=== PATIENT | male | born 1995 | race African-American/Black ===

== ENCOUNTER 2016-02-16 21:48 | Emergency (ER) | payer MEDICAID, OTHER ==
[~2016-02-16] VITALS: Ht 175.3 cm; Wt 72.7 kg
[~2016-02-16 21:48] MED LIST: ERYT1O RIGHT EYE; NITR-29 PO; POLY10O EACH EYE
[2016-02-16 21:50] VITALS: BP 134/78; PULSE 84; RESP 14; TEMP 98.2; O2SAT 98
[2016-02-17 02:33] LABS: BACTERIA, URINE RARE /hpf; BLOOD, URINE LARGE (NEG); GLUCOSE,URINE NEG (NEG); KETONE, URINE 40 mg/dL (NEG); MUCUS URINE FEW /lpf (OCC); NITRITE,URINE NEG (NEG)
[2016-02-17 02:34] LABS: COMMENT (UR) CULT NOT INDICATED; CULTURE IF INDICATED CULT NOT INDICATED; URINE COLOR RED (YELLW/STRAW)
[2016-02-17] MEDS ORDERED: SODIUM CHLORIDE 0.9% FLUSH 5 ML FLUSH IVF PRN (03:00)
[2016-02-17 03:06] VITALS: O2SAT 100
[2016-02-17 03:44] LABS: AUTOMATED NEUTROPHIL # 5.5 TH/MM3 (1.8-7.7); BASOPHIL # 0.1 TH/MM3 (0-0.2); BASOPHIL % 0.6 % (0.0-2.0); EOSINOPHIL # 0.1 TH/MM3 (0-0.4); HEMATOCRIT 44.7 % (39.0-51.0); HEMO FLAGS DIFF FINAL; LYMPH % 29.2 % (9.0-44.0); LYMPHOCYTE # 2.8 TH/MM3 (1.0-4.8); MEAN CORPUSCULAR HEMOGLOBIN 28.5 PG (27.0-34.0); MEAN CORPUSCULAR HGB CONC 35.6 % (32.0-36.0); MONO % 12.2 % (0.0-8.0); PLATELET COUNT 194 TH/MM3 (150-450); RED BLOOD COUNT 5.59 MIL/MM3 (4.50-5.90); RED CELL DISTRIBUTION WIDTH 13.6 % (11.6-17.2); WHITE BLOOD COUNT 9.6 TH/MM3 (4.0-11.0)
[2016-02-17 04:01] LABS: BICARBONATE 28.6 MEQ/L (21.0-32.0); POTASSIUM 3.4 MEQ/L (3.5-5.1)
[2016-02-17] MEDS ORDERED: CIPR-9 PO (04:18)
--- NOTE | 2016-02-17 04:18 | PD ---
HPI Chief Complaint: Complaint Time Seen by Provider: 02:55 Travel History International Travel<30 days: No Contact w/Intl Traveler<30days: No Traveled to known affect area: No History of Present Illness HPI Patient is a 20-year-old male presents emergency department for painless hematuria. Patient states this never happened to him before. Denies history of burning on urination and flank pain. Patient states he has a father who is on dialysis and is concerned that his kidneys might be failing him. Patient denies any history of trauma. Presents with his 2 friends all of whom have skateboards today and I question him on trauma multiple times and he declines. Patient does state he has a history of midline low back pain but this is not new for him. Denies any fever or denies any swelling in his extremities. Denies any Shortness of breath. PFSH Social History Alcohol Use: No Tobacco Use: No Substance Use: No Allergies-Medications (Allergen,Severity, Reaction): Coded Allergies: No Known Allergies (Unverified , 02/17/16) Reported Meds & Prescriptions Reported Meds & Active Scripts Active Cipro (Ciprofloxacin HCl) 500 Mg Tab 500 Mg PO BID 7 Days Review of Systems Except as stated in HPI: all other systems reviewed are Neg Physical Exam Narrative GENERAL: [Well-developed well-nourished in no apparent distress. Appears quite comfortable sleeping on my initial evaluation. SKIN: Warm and dry. No bruising to posterior thorax or abdomen. HEAD: Atraumatic. Normocephalic. EYES: Pupils equal and round. No scleral icterus. No injection or drainage. ENT: No nasal bleeding or discharge. Mucous membranes pink and moist. NECK: Trachea midline. No JVD. CARDIOVASCULAR: Regular rate and rhythm. No murmur appreciated. RESPIRATORY: No accessory muscle use. Clear to auscultation. Breath sounds equal bilaterally. GASTROINTESTINAL: Abdomen soft, non-tender, nondistended. Hepatic and splenic margins not palpable. No CVA tenderness. GENITOURINARY: Normal circumcised male genitalia no blood at the urethral meatus , no trauma evident. MUSCULOSKELETAL: No obvious deformities. No clubbing. No cyanosis. No edema. No midline low back tenderness or step-off. NEUROLOGICAL: Awake and alert. No obvious cranial nerve deficits. Motor grossly within normal limits. Normal speech. PSYCHIATRIC: Appropriate mood and affect; insight and judgment normal. Data Data Last Documented VS Vital Signs Date Time Temp Pulse Resp B/P Pulse Ox O2 Delivery O2 Flow Rate FiO2 02/17/16 04:49 78 18 123/64 100 Room Air 02/16/16 21:50 98.2 Orders Urinalysis - C+S If Indicated (02/17/16 01:58) Basic Metabolic Panel (Bmp) (02/17/16 02:55) Complete Blood Count With Diff (02/17/16 02:55) Iv Access Insert/Monitor (02/17/16 02:55) Ecg Monitoring (02/17/16 02:55) Oximetry (02/17/16 02:55) Sodium Chloride 0.9% Flush (Ns Flush) (02/17/16 03:00) Labs Laboratory Tests Test 02/17/16 02/17/16 02:21 03:29 Urine Color RED Urine Turbidity CLEAR Urine pH 6.0 Urine Specific [place] 1.023 Urine Protein 100 mg/dL Urine Glucose (UA) NEG mg/dL Urine Ketones 40 mg/dL Urine Occult Blood LARGE Urine Nitrite NEG Urine Bilirubin NEG Urine Urobilinogen LESS THAN 2.0 MG/DL Urine Leukocyte Esterase NEG Urine WBC 3 /hpf Urine Bacteria RARE /hpf Urine Mucus FEW /lpf Microscopic Urinalysis Comment CULT NOT INDICATED White Blood Count 9.6 TH/MM3 Red Blood Count 5.59 MIL/MM3 Hemoglobin 15.9 GM/DL Hematocrit 44.7 % Mean Corpuscular Volume 80.0 FL Mean Corpuscular Hemoglobin 28.5 PG Mean Corpuscular Hemoglobin 35.6 % Concent Red Cell Distribution Width 13.6 % Platelet Count 194 TH/MM3 Mean Platelet Volume 10.0 FL Neutrophils (%) (Auto) 57.0 % Lymphocytes (%) (Auto) 29.2 % Monocytes (%) (Auto) 12.2 % Eosinophils (%) (Auto) 1.0 % Basophils (%) (Auto) 0.6 % Neutrophils # (Auto) 5.5 TH/MM3 Lymphocytes # (Auto) 2.8 TH/MM3 Monocytes # (Auto) 1.2 TH/MM3 Eosinophils # (Auto) 0.1 TH/MM3 Basophils # (Auto) 0.1 TH/MM3 CBC Comment DIFF FINAL Differential Comment Sodium Level 138 MEQ/L Potassium Level 3.4 MEQ/L Chloride Level 103 MEQ/L Carbon Dioxide Level 28.6 MEQ/L Anion Gap 6 MEQ/L Blood Urea Nitrogen 14 MG/DL Creatinine 1.06 MG/DL Estimat Glomerular Filtration 109 ML/MIN Rate Random Glucose 138 MG/DL Calcium Level 8.6 MG/DL [facility] Medical Decision Making Medical Screen Exam Complete: Yes Emergency Medical Condition: Yes Differential Diagnosis Hematuria, UTI, acute kidney injury, kidney stone seems less likely. Narrative Course Patient is a 20-year-old male roomed in the emergency department for painless hematuria. UA does confirm hematuria though nitrite negative. Labs are obtained and creatinine is within normal limits. White blood cell count normal and differential normal. Considering his age she is a low risk for malignancy. I did discuss with him need for follow-up with the urologist. We'll place on them. Antibiotics at this time discussed need for follow-up with his primary care provider for interval repeat urine testing. Otherwise there is no medical emergency here and he is stable for discharge. Diagnosis Primary Impression: Hematuria Referrals: Karson Prater DO Additional Instructions: Call your primary care physician Med/Other Pt SpecificInfo: Prescription(s) given Scripts Ciprofloxacin (Cipro)500 Mg [id number] Mg PO BID 7 Days Ref 0 Prov:Afshin Frey MD 02/17/16 Disposition: 01 DISCHARGE HOME Condition: Stable Afsihn Frey MD Feb 17, 2016 04:18
[2016-02-17 04:49] VITALS: BP 123/64; PULSE 78; RESP 18; O2SAT 100
== END 2016-02-17 05:49 | disposition home or self-care (01) ==
LOC: NEPC 21:48
DX: R31.9 Hematuria, unspecified (principal); M54.5 Low back pain
CPT/HCPCS: 80048; 81001; 85025; 99284

== ENCOUNTER 2016-06-06 15:40 | Emergency (ER) | payer MEDICAID, OTHER ==
[~2016-06-06] VITALS: Ht 175.3 cm; Wt 72.5 kg
[~2016-06-06 15:40] MED LIST changes: +CIPR-9 PO; -ERYT1O RIGHT EYE; -NITR-29 PO; -POLY10O EACH EYE
[2016-06-06 15:42] VITALS: BP 130/65; PULSE 81; RESP 14; TEMP 98.4; O2SAT 99
--- NOTE | 2016-06-06 15:44 | PD ---
Physical Exam Time Seen by Provider: 15:42 Narrative 20 y/o male with cough and congestion for 2 days Vital signs reviewed. Seen at triage desk. awaiting bed placement. Data Data Last Documented VS Vital Signs Date Time Temp Pulse Resp B/P Pulse Ox O2 Delivery O2 Flow Rate FiO2 06/06/16 15:42 98.4 81 14 130/65 99 MDM Medical Record Reviewed: Yes Supervised Visit with MURALI: No Gurdeep Zazueta June 06, 2016 15:44
[2016-06-06] MEDS ORDERED: IBUP200T2 PO (15:55)
--- NOTE | 2016-06-06 16:22 | PD ---
HPI Chief Complaint: Cold / Flu Symptoms Time Seen by Provider: 16:19 Travel History International Travel<30 days: No Contact w/Intl Traveler<30days: No Traveled to known affect area: No History of Present Illness HPI 20-year-old male presents to the emergency Department with complaint of nasal congestion, cough, sore throat, body ache, headache 2 days. Reports subjective fever today. Did not take his temperature and cannot reported MAXIMUM TEMPERATURE. Denies ear pain, chest pain, chest tightness, shortness of breath. Reports wheezing. Says when he coughs it causes pain in his chest. Denies abdominal pain, nausea, vomiting. Has been using cough drops and taking ibuprofen. Says the ibuprofen has been helping with his symptoms. No known allergies. Denies significant past medical history. Has no other medical complaints. No one else is sick with similar symptoms that he knows of. No other modifying factors or associated signs and symptoms. PFSH Past Medical History Medical History: Denies Significant Hx Immunizations Current: Yes Tetanus Vaccination: < 5 Years Influenza Vaccination: No Past Surgical History Surgical History: No Previous Surgery Social History Alcohol Use: No Tobacco Use: No Substance Use: No Allergies-Medications (Allergen,Severity, Reaction): Coded Allergies: No Known Allergies (Unverified , 06/06/16) Reported Meds & Prescriptions Reported Meds & Active Scripts Active Nasonex Nasal [place] (Mometasone Furoate) 50 Mcg/Act Naspr 2 [place] EACH NARE DAILY PRN Ibuprofen 800 Mg Tab 800 Mg PO Q6HR PRN Tessalon Perles (Benzonatate) 100 Mg Cap 100 Mg PO TID PRN Deltasone (Prednisone) 20 Mg Tab 40 Mg PO DAILY 5 Days Proair Hfa 8.5 GM Inh (Albuterol Sulfate) 90 Mcg/Act Aer 2 Puff INH Q4-6H PRN 108 mcg/actuation Reported Ibuprofen 200 Mg Tab 400 Mg PO Q6H PRN Review of Systems Except as stated in HPI: all other systems reviewed are Neg Physical Exam Narrative GENERAL: Well-nourished, well-developed male patient, in no acute distress; afebrile, nontoxic-appearing SKIN: Warm and dry. No rash. HEAD: Atraumatic. Normocephalic. EYES: Pupils equal and round at 3 mm with brisk reaction. No scleral icterus. No injection or drainage. PERRLA. ENT: Mucosa pink and moist. No erythema or exudates. No uvular edema. No uvular , palatal, or tonsillar deviation. Airway patent. EARS: Bilateral pinnae and external canals appear within normal limits. Bilateral tympanic membranes without erythema, dullness or perforation. NECK: Trachea midline. No lymphadenopathy. CARDIOVASCULAR: Regular rate and rhythm. No murmur appreciated. RESPIRATORY: No accessory muscle use. Clear to auscultation and decreased in bilateral bases. Breath sounds equal bilaterally. Dry, barky cough during physical exam. GASTROINTESTINAL: Abdomen soft, non-tender, nondistended. Hepatic and splenic margins not palpable. Bowel sounds are active 4 quadrants. MUSCULOSKELETAL: No obvious deformities. No clubbing. No cyanosis. No edema. NEUROLOGICAL: Awake and alert. Oriented 3. No obvious cranial nerve deficits. Motor grossly within normal limits. Normal speech. Moves all extremities. 5/5 strength to all extremities. PSYCHIATRIC: Appropriate mood and affect; insight and judgment normal. Data Data Last Documented VS Vital Signs Date Time Temp Pulse Resp B/P Pulse Ox O2 Delivery O2 Flow Rate FiO2 06/06/16 15:42 98.4 81 14 130/65 99 Orders Group A Rapid Strep Screen (06/06/16 16:18) Influenzae A/B Antigen (06/06/16 16:18) Albuterol Neb (Albuterol Neb) (06/06/16 16:30) Chest, Pa & Lat (06/06/16 16:22) Strep Culture (Group A) (06/06/16 16:21) [facility] Medical Decision Making Medical Screen Exam Complete: Yes Emergency Medical Condition: Yes Medical Record Reviewed: Yes Differential Diagnosis Bronchitis, influenza, upper respiratory infection, pneumonia Narrative Course 20-year-old male with cold/flu symptoms 2 days. Patient is afebrile and nontoxic appearing. He reports subjective fever at home. Patient is in no acute distress and oxygen saturation is 98% on room air. His lungs are clear and equal throughout with decreased lung sounds bilateral bases. He denies chest tightness or shortness of breath but reports wheezing. Reports pain in his chest mainly when he coughs. Has history of asthma. Cough is dry and barky during physical exam. Also reports sore throat. Influenza, rapid strep ordered. Chest x-ray ordered. Albuterol nebulizer ordered. 1653: Chest x-ray with no acute findings. 1710: Reexamination after breathing treatment the patient reports improvement in symptoms. He says he feels like he can breathe better. Lungs are clear and equal throughout with improved air flow in bilateral bases. 1750: Strep and influenza negative. Suspecting acute bronchitis. Pro-air inhaler, Deltasone, Tessalon Perles, ibuprofen, Nasonex nasal spray prescribed for home. Patient verbalizes understanding and agreement with treatment plan. Patient is medically cleared and stable for discharge. Discussed reasons to return to the emergency department. Instructed patient to follow up with primary care provider. Patient agrees with treatment plan. The patients vital signs are stable and the patient is stable for outpatient follow-up and treatment. Patient discharged home, stable and in no acute distress. Diagnosis Primary Impression: Acute bronchitis Qualified Code: J20.9 - Acute bronchitis, unspecified organism Referrals: Primary Care Physician Patient Instructions: Acute Bronchitis (ED), General Instructions Departure Forms: Tests/Procedures, Work Release Enter return to work date: June 08, 2016 Additional Instructions: Use Albuterol inhaler as prescribed Take oral steroids as prescribed and complete full course Use Tessalon Perles as prescribed to decrease coughing spasms [id number] decongestants or antihistamines as directed and as needed for symptom management Your cough can last 4-6 weeks Drink plenty of fluids to prevent dehydration Use hot air humidifier to decrease cough exacerbation Turn off ceiling fans and sleep with head of bed elevated Avoid triggers such as second hand smoke, dust, known allergens Follow-up with your primary care provider Return to the emergency department immediately with worsening of symptoms Med/Other Pt SpecificInfo: Prescription(s) given Scripts Mometasone Nasal [place] (Nasonex Nasal [place])50 Mcg/Act Naspr2 [place] EACH NARE DAILY PRN (NASAL CONGESTION) #1 BOTTLE Ref 0 Prov:Caprice Langston [employer]ER 06/06/16 Ibuprofen 800 Mg [id number] Mg PO Q6HR PRN (PAIN) #30 TAB Ref 0 Prov:Caprice Langston [employer]UME L[employer]ER 06/06/16 Benzonatate (Tessalon Perles)100 Mg [id number] Mg PO TID PRN (COUGH) #20 CAP Ref 0 Prov:Caprice Langston [employer]RIGATION [employer]UME LAYER 06/06/16 Prednisone (Deltasone)20 Mg Tab40 Mg PO DAILY 5 Days Ref 0 Prov:Caprice LangstonP 06/06/16 Albuterol 8.5 GM Inh (Proair Hfa 8.5 GM Inh)90 Mcg/Act Aer2 Puff INH Q4-6H PRN ( SOB/WHEEZING) #1 INHALER Ref 0 108 mcg/actuation Prov:Caprice Langston 06/06/16 Disposition: 01 DISCHARGE HOME Condition: Stable Caprice Langston June 06, 2016 16:22
[2016-06-06] MEDS ORDERED: RESP: ALBUTEROL 2.5 MG/3 ML NEB (SCH) INH ONE (16:30)
--- NOTE | 2016-06-06 16:53 | RADRPT ---
EXAM DATE/TIME: 06/06/2016 16:35 [facility] COMPARISON: No previous studies available for comparison. INDICATIONS : Cough and cold symptoms for 2 days, chest hurts when coughing MEDICAL HISTORY : None. SURGICAL HISTORY : None. ENCOUNTER: Initial ACUITY: 2 days PAIN SCORE: 2/10 LOCATION: Bilateral chest FINDINGS: PA and lateral views of the chest demonstrate the lungs to be symmetrically aerated without evidence of mass, infiltrate or effusion. The cardiomediastinal contours are unremarkable. Scoliotic curvatur e.. CONCLUSION: Normal examination. Moi Dumont Jr., MD on June 06, 2016 at 16:50 Board Certified Radiologist. This report was verified electronically.
[2016-06-06] MEDS ORDERED: ALBUAER3 INH ×2 (17:49→18:11)
[2016-06-06] MEDS ORDERED: MOME17I EACH NARE ×2 (17:49→18:11)
[2016-06-06] MEDS ORDERED: PRED-503 PO ×2 (17:49→18:11)
[2016-06-06] MEDS ORDERED: BENZ100 PO ×2 (17:49→18:11)
[2016-06-06] MEDS ORDERED: IBUP800T23 PO ×2 (17:49→18:11)
== END 2016-06-06 18:30 | disposition home or self-care (01) ==
LOC: NEPK 15:40
DX: J20.9 Acute bronchitis, unspecified (principal)
CPT/HCPCS: 71020; 87081; 87804; 87880; 94640; 99284; J7613

== ENCOUNTER 2016-07-02 19:14 | Emergency (ER) | payer OTHER ==
[~2016-07-02] VITALS: Ht 175.3 cm; Wt 72.5 kg
[~2016-07-02 19:14] MED LIST changes: +ALBUAER3 INH; +BENZ100 PO; -CIPR-9 PO; +IBUP200T2 PO; +IBUP800T23 PO; +MOME17I EACH NARE; +PRED-503 PO
[2016-07-02 19:21] VITALS: BP 130/83; PULSE 100; RESP 16; TEMP 99; O2SAT 98
[2016-07-02] MEDS ORDERED: SODIUM CHLOR 0.9% 1000 ML INJ 1,000 ML IV ONE ×2 (19:29)
[2016-07-02] MEDS ORDERED: KETOROLAC TROMETHAMINE 30 MG/ML (IVP) VIAL IV PUSH ONE (19:30)
[2016-07-02] MEDS ORDERED: ONDANSETRON HCL 4 MG/2 ML VIAL IV PUSH ONE (19:30)
--- NOTE | 2016-07-02 19:35 | PD ---
HPI Chief Complaint: Cold / Flu Symptoms Time Seen by Provider: 19:32 Travel History International Travel<30 days: No Contact w/Intl Traveler<30days: No Traveled to known affect area: No History of Present Illness HPI Patient is a 20-year-old male presenting to the emergency evaluation of fevers, chills, chest pain, cough. Patient states his symptoms started today earlier this morning. He reports feeling dizzy when he coughs. He reports a max temp of 101. He denies any nausea, vomiting, abdominal pain, diarrhea. He has not taken anything [id number] for his fever. He does report a sore throat, denies any dysphasia. Patient denies any significant past medical history. He does report that he was treated for bronchitis 2 weeks ago. [facility] Past Medical History Medical History: Denies Significant Hx Respiratory: Yes (BRONCHITIS) Immunizations Current: Yes Past Surgical History Surgical History: No Previous Surgery Social History Alcohol Use: No Tobacco Use: No Substance Use: No Allergies-Medications (Allergen,Severity, Reaction): Coded Allergies: No Known Allergies (Unverified , 07/02/16) Reported Meds & Prescriptions Reported Meds & Active Scripts Active Nasonex Nasal [place] (Mometasone Furoate) 50 Mcg/Act Naspr 2 [place] EACH NARE DAILY PRN Ibuprofen 800 Mg Tab 800 Mg PO Q6HR PRN Tessalon Perles (Benzonatate) 100 Mg Cap 100 Mg PO TID PRN Deltasone (Prednisone) 20 Mg Tab 40 Mg PO DAILY 5 Days Proair Hfa 8.5 GM Inh (Albuterol Sulfate) 90 Mcg/Act Aer 2 Puff INH Q4-6H PRN 108 mcg/actuation Reported Ibuprofen 200 Mg Tab 400 Mg PO Q6H PRN Review of Systems Except as stated in HPI: all other systems reviewed are Neg General / Constitutional: Positive: Fever, Chills HENT: Positive: Sore Throat, No: Headaches, Rhinitis, Congestion, Earache Cardiovascular: No: Chest Pain or Discomfort Respiratory: Positive: Cough, Pleuritic Pain, No: Shortness of Breath, Wheezing Gastrointestinal: No: Nausea, Vomiting, Diarrhea, Abdominal Pain Genitourinary: No: Dysuria Musculoskeletal: Positive: Myalgias Neurologic: Positive: Weakness, Dizziness Physical Exam Narrative GENERAL: Well-developed, well-nourished, alert male. Appears acutely ill, no acute distress. SKIN: Focused skin assessment warm/dry. HEAD: Atraumatic. Normocephalic. EYES: Pupils equal and round. No scleral icterus. No injection or drainage. ENT: No nasal bleeding or discharge. Mucous membranes pink and moist. Bilateral tonsillar enlargement 1+, erythema noted. NECK: Trachea midline. No JVD. CARDIOVASCULAR: Mildly tachycardic. No murmur appreciated. RESPIRATORY: No accessory muscle use. Clear to auscultation. Breath sounds equal bilaterally. GASTROINTESTINAL: Abdomen soft, non-tender, nondistended. Hepatic and splenic margins not palpable. MUSCULOSKELETAL: No obvious deformities. No clubbing. No cyanosis. No edema. NEUROLOGICAL: Awake and alert. No obvious cranial nerve deficits. Motor grossly within normal limits. Normal speech. PSYCHIATRIC: Appropriate mood and affect; insight and judgment normal. Data Data Last Documented VS Vital Signs Date Time Temp Pulse Resp B/P Pulse Ox O2 Delivery O2 Flow Rate FiO2 07/02/16 19:21 99.0 100 16 130/83 98 Room Air Orders Complete Blood Count With Diff (07/02/16 19:29) Comprehensive Metabolic Panel (07/02/16 19:29) Lactic Acid Sepsis Protocol (07/02/16 19:29) Magnesium (Mg) (07/02/16 19:29) Urinalysis - C+S If Indicated (07/02/16 19:29) Influenzae A/B Antigen (07/02/16 19:29) Blood Culture (07/02/16 19:29) Chest, Single Ap (07/02/16 19:29) Blood Glucose (07/02/16 19:29) Ecg Monitoring (07/02/16 19:29) Iv Access Insert/Monitor (07/02/16 19:29) Oximetry (07/02/16 19:29) Oxygen Administration (07/02/16 19:29) Sodium Chlor 0.9% 1000 Ml Inj (Ns 1000 M (07/02/16 19:29) Sodium Chlor 0.9% 1000 Ml Inj (Ns 1000 M (07/02/16 19:29) Group A Rapid Strep Screen (07/02/16 19:29) Lactic Acid (07/02/16 19:29) Ketorolac Inj (Toradol Inj) (07/02/16 19:30) Ondansetron Inj (Zofran Inj) (07/02/16 19:30) Strep Culture (Group A) (07/02/16 20:20) Labs Laboratory Tests Test 07/02/16 20:20 White Blood Count 12.5 TH/MM3 Red Blood Count 5.55 MIL/MM3 Hemoglobin 15.4 GM/DL Hematocrit 44.7 % Mean Corpuscular Volume 80.5 FL Mean Corpuscular Hemoglobin 27.7 PG Mean Corpuscular Hemoglobin 34.4 % Concent Red Cell Distribution Width 13.8 % Platelet Count 217 TH/MM3 Mean Platelet Volume 10.0 FL Neutrophils (%) (Auto) 70.4 % Lymphocytes (%) (Auto) 7.8 % Monocytes (%) (Auto) 21.2 % Eosinophils (%) (Auto) 0.0 % Basophils (%) (Auto) 0.6 % Neutrophils # (Auto) 8.8 TH/MM3 Lymphocytes # (Auto) 1.0 TH/MM3 Monocytes # (Auto) 2.6 TH/MM3 Eosinophils # (Auto) 0.0 TH/MM3 Basophils # (Auto) 0.1 TH/MM3 CBC Comment AUTO DIFF Urine Color YELLOW Urine Turbidity HAZY Urine pH 6.5 Urine Specific [place] 1.033 Urine Protein 30 mg/dL Urine Glucose (UA) NEG mg/dL Urine Ketones 10 mg/dL Urine Occult Blood NEG Urine Nitrite NEG Urine Bilirubin NEG Urine Urobilinogen 8.0 MG/DL Urine Leukocyte Esterase NEG Urine RBC 2 /hpf Urine WBC 5 /hpf Urine Squamous Epithelial <1 /hpf Cells Urine Mucus MANY /lpf Microscopic Urinalysis Comment CULT NOT INDICATED Sodium Level 135 MEQ/L Potassium Level 3.6 MEQ/L Chloride Level 99 MEQ/L Carbon Dioxide Level 28.3 MEQ/L Anion Gap 8 MEQ/L Blood Urea Nitrogen 13 MG/DL Creatinine 1.27 MG/DL Estimat Glomerular Filtration 89 ML/MIN Rate Random Glucose 85 MG/DL Lactic Acid Level 1.0 mmol/L Calcium Level 9.1 MG/DL Magnesium Level 1.7 MG/DL Total Bilirubin 0.9 MG/DL Aspartate Amino Transf 23 U/L (AST/SGOT) Alanine Aminotransferase 24 U/L (ALT/SGPT) Alkaline Phosphatase 75 U/L Total Protein 8.1 GM/DL Albumin 4.2 GM/DL MDM Medical Decision Making Medical Screen Exam Complete: Yes Emergency Medical Condition: Yes Medical Record Reviewed: Yes Interpretation(s) Last Impressions Chest X-Ray 07/02/161928 Signed Impressions: Service Date/Time: Saturday, July 02, 2016 19:34 - CONCLUSION: No acute disease. Afshin Alvarez MD Laboratory Tests Test 07/02/16 20:20 White Blood Count 12.5 TH/MM3 Red Blood Count 5.55 MIL/MM3 Hemoglobin 15.4 GM/DL Hematocrit 44.7 % Mean Corpuscular Volume 80.5 FL Mean Corpuscular Hemoglobin 27.7 PG Mean Corpuscular Hemoglobin 34.4 % Concent Red Cell Distribution Width 13.8 % Platelet Count 217 TH/MM3 Mean Platelet Volume 10.0 FL Neutrophils (%) (Auto) 70.4 % Lymphocytes (%) (Auto) 7.8 % Monocytes (%) (Auto) 21.2 % Eosinophils (%) (Auto) 0.0 % Basophils (%) (Auto) 0.6 % Neutrophils # (Auto) 8.8 TH/MM3 Lymphocytes # (Auto) 1.0 TH/MM3 Monocytes # (Auto) 2.6 TH/MM3 Eosinophils # (Auto) 0.0 TH/MM3 Basophils # (Auto) 0.1 TH/MM3 CBC Comment AUTO DIFF Urine Color YELLOW Urine Turbidity HAZY Urine pH 6.5 Urine Specific [place] 1.033 Urine Protein 30 mg/dL Urine Glucose (UA) NEG mg/dL Urine Ketones 10 mg/dL Urine Occult Blood NEG Urine Nitrite NEG Urine Bilirubin NEG Urine Urobilinogen 8.0 MG/DL Urine Leukocyte Esterase NEG Urine RBC 2 /hpf Urine WBC 5 /hpf Urine Squamous Epithelial <1 /hpf Cells Urine Mucus MANY /lpf Microscopic Urinalysis Comment CULT NOT INDICATED Sodium Level 135 MEQ/L Potassium Level 3.6 MEQ/L Chloride Level 99 MEQ/L Carbon Dioxide Level 28.3 MEQ/L Anion Gap 8 MEQ/L Blood Urea Nitrogen 13 MG/DL Creatinine 1.27 MG/DL Estimat Glomerular Filtration 89 ML/MIN Rate Random Glucose 85 MG/DL Lactic Acid Level 1.0 mmol/L Calcium Level 9.1 MG/DL Magnesium Level 1.7 MG/DL Total Bilirubin 0.9 MG/DL Aspartate Amino Transf 23 U/L (AST/SGOT) Alanine Aminotransferase 24 U/L (ALT/SGPT) Alkaline Phosphatase 75 U/L Total Protein 8.1 GM/DL Albumin 4.2 GM/DL Vital Signs Date Time Temp Pulse Resp B/P Pulse Ox O2 Delivery O2 Flow Rate FiO2 07/02/16 19:21 99.0 100 16 130/83 98 Room Air Differential Diagnosis Pneumonia versus strep pharyngitis versus viral syndrome versus sepsis versus influenza versus other Narrative Course Patient's a 20 male presented to the emergency evaluation of fever and cold of flulike symptoms that started this morning. Labs imaging ordered and pending. CBC with a mildly elevated white count all 0.5, lactic acid is 1.0, chemistry is unremarkable, urinalysis is unremarkable, chest x-ray shows no acute disease. Patient reports feeling better after administration of Toradol. Temp was reassessed at 99.2. Patient appears well, he is lying in bed with his girlfriend on his cell phone. Patient was encouraged to take ibuprofen as needed and as directed for fevers or pain. He was encouraged to maintain adequate fluid intake. He was encouraged to follow-up with his primary doctor. Additionally patient was encouraged to return to emergency department for any new or worsening symptoms. Patient verbalized understanding of instructions. Patient is stable for discharge. Diagnosis Primary Impression: Viral syndrome Referrals: Primary Care Physician Patient Instructions: General Instructions, Viral Syndrome (DC) Departure Forms: Tests/Procedures, Work Release Enter return to work date: June 27, 2016 Additional Instructions: Maintain adequate fluid intake Rest Take ibuprofen as needed and as directed for fevers and pain Return to emergency department for any new or worsening symptoms Follow-up with your primary doctor Med/Other Pt SpecificInfo: Prescription(s) given Scripts Ondansetron Odt (Zofran Odt)4 Mg Tab4 Mg SL Q6HR PRN (Nausea/Vomiting) 3 Days Ref 0 Prov:Sheila Samaniego 07/02/16 Ibuprofen 800 Mg [id number] Mg PO Q6HR PRN (PAIN) #40 TAB Ref 0 Prov:Sheila Samaniego 07/02/16 Disposition: 01 DISCHARGE HOME Condition: Stable Sheila Samaniego July 02, 2016 19:35
--- NOTE | 2016-07-02 20:00 | RADRPT ---
EXAM DATE/TIME: 07/02/2016 19:34 [facility] COMPARISON: No previous studies available for comparison. INDICATIONS : Fever MEDICAL HISTORY : None. SURGICAL HISTORY : None. ENCOUNTER: Initial ACUITY: 1 day PAIN SCORE: 0/10 LOCATION: Bilateral chest FINDINGS: A single view of the chest demonstrates the lungs to be symmetrically aerated without evidence of mas s, infiltrate or effusion. The cardiomediastinal contours are unremarkable. Osseous structures are intact. CONCLUSION: No acute disease. Afshin Alvarez MD on July 02, 2016 at 19:58 Board Certified Radiologist. This report was verified electronically.
[2016-07-02 20:42] LABS: AUTOMATED NEUTROPHIL # 8.8 TH/MM3 (1.8-7.7); BASOPHIL # 0.1 TH/MM3 (0-0.2); BASOPHIL % 0.6 % (0.0-2.0); HEMATOCRIT 44.7 % (39.0-51.0); LYMPH % 7.8 % (9.0-44.0); MEAN CELL VOLUME 80.5 FL (80.0-100.0); MEAN CORPUSCULAR HEMOGLOBIN 27.7 PG (27.0-34.0); MEAN CORPUSCULAR HGB CONC 34.4 % (32.0-36.0); MONO % 21.2 % (0.0-8.0); NEUT % 70.4 % (16.0-70.0); PLATELET COUNT 217 TH/MM3 (150-450); RED BLOOD COUNT 5.55 MIL/MM3 (4.50-5.90); RED CELL DISTRIBUTION WIDTH 13.8 % (11.6-17.2); WHITE BLOOD COUNT 12.5 TH/MM3 (4.0-11.0)
[2016-07-02 20:49] LABS: HEMO FLAGS AUTO DIFF
[2016-07-02 20:59] LABS: BLOOD, URINE NEG (NEG); COMMENT (UR) CULT NOT INDICATED; CULTURE IF INDICATED CULT NOT INDICATED; GLUCOSE,URINE NEG (NEG); KETONE, URINE 10 mg/dL (NEG); MUCUS URINE MANY /lpf (OCC); NITRITE,URINE NEG (NEG); PH, URINE 6.5 (5.0-8.5); SQUAMOUS EPITHELIAL CELL URINE <1 /hpf (0-5); URINE COLOR YELLOW (YELLW/STRAW)
[2016-07-02 21:05] LABS: ANION GAP 8 MEQ/L (5-15); AST (GOT) 23 U/L (15-39); BICARBONATE 28.3 MEQ/L (21.0-32.0); BLOOD UREA NITROGEN 13 MG/DL (7-18); CHLORIDE 99 MEQ/L (98-107); GLOMERULAR FILTRATION RATE 89 ML/MIN (>89); MAGNESIUM 1.7 MG/DL (1.5-2.5); POTASSIUM 3.6 MEQ/L (3.5-5.1); SODIUM (NA) 135 MEQ/L (136-145)
[2016-07-02 21:08] LABS: ALKALINE PHOSPHATASE 75 U/L (45-117); ALT (GPT) 24 U/L (9-52); TOTAL BILIRUBIN ADULT 0.9 MG/DL (0.2-1.0)
[2016-07-02] MEDS ORDERED: IBUP800T23 PO (21:56)
[2016-07-02] MEDS ORDERED: ZOFR4TAB3 SL (21:56)
[2016-07-02 22:14] VITALS: BP 128/74
[2016-07-02 22:17] LABS: PLATELET ESTIMATE SMEAR NORMAL (NORMAL); PLATELET MORPHOLOGY NORMAL (NORMAL); SCAN/DIFF AUTO DIFF CONFIRMED
== END 2016-07-02 22:24 | disposition home or self-care (01) ==
LOC: NEPD 19:14
DX: B34.9 Viral infection, unspecified (principal); R50.9 Fever, unspecified; R07.9 Chest pain, unspecified; R05 Cough; R42 Dizziness and giddiness; R07.0 Pain in throat; Z79.899 Other long term (current) drug therapy; Z87.09 Personal history of other diseases of the respiratory system
CPT/HCPCS: 71010; 80053; 81001; 83605; 83735; 85025; 87040; 87081; 87804; 87880; 96361; 96374; 96375; 99284; J1885; J2405; J7030

== ENCOUNTER 2017-01-10 12:46 | Emergency (ER) | payer OTHER ==
[~2017-01-10] VITALS: Ht 175.3 cm; Wt 70.0 kg
[~2017-01-10 12:46] MED LIST changes: +IBUP1TAB7 PO; -IBUP200T2 PO; +IBUP200T47 PO; -IBUP800T23 PO; +ZOFR4TAB3 SL
[2017-01-10 12:50] VITALS: BP 135/70; PULSE 79; RESP 16; TEMP 98.7; O2SAT 98
--- NOTE | 2017-01-10 15:06 | PD ---
HPI Chief Complaint: Psychiatric Symptoms Time Seen by Provider: 15:04 Travel History International Travel<30 days: No Contact w/Intl Traveler<30days: No Traveled to known affect area: No History of Present Illness HPI 21-year-old male presents to ED via EMS for evaluation of suicidal ideation. Patient is under Garza act. On presentation he states he is stressed out by school and life and doesn't want to deal with it anymore. So he took one 800 mg ibuprofen, one quarter bottle of DayQuil this morning. He states that he tried to drown himself in the bathtub, but was unable to hold himself underwater. He denies any inhalation of water. He denies somatic complaints on presentation. He denies psychiatric history. He takes no daily medications. Denies cigarette smoking, alcohol or illicit drug use. He states that his girlfriend called EMS today. PFSH Past Medical History Medical History: Denies Significant Hx Respiratory: Yes (BRONCHITIS) Immunizations Current: Yes Past Surgical History Surgical History: No Previous Surgery Social History Alcohol Use: No Tobacco Use: No Substance Use: No Allergies-Medications (Allergen,Severity, Reaction): Coded Allergies: No Known Allergies (Unverified , 07/02/16) Reported Meds & Prescriptions Reported Meds & Active Scripts Active Zofran Odt (Ondansetron Odt) 4 Mg Tab 4 Mg SL Q6HR PRN 3 Days Ibuprofen 800 Mg Tab 800 Mg PO Q6HR PRN Nasonex Nasal [place] (Mometasone Furoate) 50 Mcg/Act Naspr 2 Lodge EACH NARE DAILY PRN Ibuprofen 800 Mg Tab 800 Mg PO Q6HR PRN Tessalon Perles (Benzonatate) 100 Mg Cap 100 Mg PO TID PRN Deltasone (Prednisone) 20 Mg Tab 40 Mg PO DAILY 5 Days Proair Hfa 8.5 GM Inh (Albuterol Sulfate) 90 Mcg/Act Aer 2 Puff INH Q4-6H PRN 108 mcg/actuation Reported Ibuprofen 200 Mg Tab 400 Mg PO Q6H PRN Review of Systems Except as stated in HPI: all other systems reviewed are Neg Physical Exam Narrative GENERAL: Well-nourished, well-developed patient. PSYCHIATRIC: No delusional thought processes. No hallucinations. Flat affect, depressed, withdrawn. SKIN: Focused skin assessment warm/dry. HEAD: Normocephalic. EYES: No scleral icterus. No injection or drainage. NECK: Supple, trachea midline. No JVD or lymphadenopathy. CARDIOVASCULAR: Regular rate and rhythm without murmurs, gallops, or rubs. RESPIRATORY: Breath sounds equal bilaterally. No accessory muscle use. GASTROINTESTINAL: Abdomen soft, non-tender, nondistended. MUSCULOSKELETAL: No cyanosis, or edema. BACK: Nontender without obvious deformity. No CVA tenderness. Data Data Last Documented VS Vital Signs Date Time Temp Pulse Resp B/P (MAP) Pulse Ox O2 Delivery O2 Flow Rate FiO2 01/10/17 12:50 98.7 79 16 135/70 (91) 98 Orders Orders Complete Blood Count With Diff (01/10/17 14:26) Comprehensive Metabolic Panel (01/10/17 14:26) Urinalysis - C+S If Indicated (01/10/17 14:26) Iv Access Insert/Monitor (01/10/17 14:26) Psych Screen (01/10/17 14:26) Drug Screen, Random Urine (01/10/17 14:26) Alcohol (Ethanol) (01/10/17 14:26) Salicylates (Aspirin) (01/10/17 14:26) Tylenol (Acetaminophen) (01/10/17 14:26) Labs Laboratory Tests Test 01/10/17 15:50 White Blood Count 7.5 TH/MM3 Red Blood Count 5.57 MIL/MM3 Hemoglobin 15.8 GM/DL Hematocrit 45.7 % Mean Corpuscular Volume 81.9 FL Mean Corpuscular Hemoglobin 28.3 PG Mean Corpuscular Hemoglobin Concent 34.6 % Red Cell Distribution Width 14.5 % Platelet Count 219 TH/MM3 Mean Platelet Volume 10.1 FL Neutrophils (%) (Auto) 66.1 % Lymphocytes (%) (Auto) 24.9 % Monocytes (%) (Auto) 7.7 % Eosinophils (%) (Auto) 0.6 % Basophils (%) (Auto) 0.7 % Neutrophils # (Auto) 5.0 TH/MM3 Lymphocytes # (Auto) 1.9 TH/MM3 Monocytes # (Auto) 0.6 TH/MM3 Eosinophils # (Auto) 0.0 TH/MM3 Basophils # (Auto) 0.1 TH/MM3 CBC Comment DIFF FINAL Differential Comment Blood Urea Nitrogen 13 MG/DL Creatinine 1.21 MG/DL Random Glucose 82 MG/DL Total Protein 8.0 GM/DL Albumin 4.2 GM/DL Calcium Level 8.8 MG/DL Alkaline Phosphatase 81 U/L Aspartate Amino Transf (AST/SGOT) 21 U/L Alanine Aminotransferase (ALT/SGPT) 22 U/L Total Bilirubin 0.7 MG/DL Sodium Level 141 MEQ/L Potassium Level 4.2 MEQ/L Chloride Level 107 MEQ/L Carbon Dioxide Level 28.2 MEQ/L Anion Gap 6 MEQ/L Estimat Glomerular Filtration Rate 93 ML/MIN Salicylates Level LESS THAN 1.7 MG/DL Acetaminophen Level LESS THAN 2.0 MCG/ML Ethyl Alcohol Level LESS THAN 3 MG/DL MDM Medical Decision Making Medical Screen Exam Complete: Yes Emergency Medical Condition: Yes Differential Diagnosis Adjustment disorder versus anxiety versus bipolar versus depression versus dementia versus electrolyte disorder versus malingering versus mood disorder versus ODD versus psychosis versus PTSD versus schizophrenia versus schizoaffective disorder versus substance-induced mood disorder versus other Narrative Course 21-year-old male presents to ED via EMS for evaluation of suicidal ideation. Patient is under Garza act. On presentation he states he is stressed out by school and life and doesn't want to deal with it anymore. So he took one 800 mg ibuprofen, one quarter bottle of DayQuil this morning. He states that he tried to drown himself in the bathtub, but was unable to hold himself underwater. He denies any inhalation of water. He denies somatic complaints on presentation. He denies psychiatric history. Vitals reviewed. On his ankle exam the patient has a flat affect but is otherwise reassuring. No concerning abnormalities of CBC, CMP, tox screen. The patient is medically clear for psychiatric evaluation. Katherine Lai Jan 10, 2017 15:06
[2017-01-10 17:07] LABS: BASOPHIL # 0.1 TH/MM3 (0-0.2); BASOPHIL % 0.7 % (0.0-2.0); EOSINOPHIL % 0.6 % (0.0-4.0); HEMATOCRIT 45.7 % (39.0-51.0); HEMO FLAGS DIFF FINAL; LYMPH % 24.9 % (9.0-44.0); LYMPHOCYTE # 1.9 TH/MM3 (1.0-4.8); MEAN CELL VOLUME 81.9 FL (80.0-100.0); MEAN CORPUSCULAR HEMOGLOBIN 28.3 PG (27.0-34.0); MEAN CORPUSCULAR HGB CONC 34.6 % (32.0-36.0); MONO % 7.7 % (0.0-8.0); NEUT % 66.1 % (16.0-70.0); PLATELET COUNT 219 TH/MM3 (150-450); RED BLOOD COUNT 5.57 MIL/MM3 (4.50-5.90); RED CELL DISTRIBUTION WIDTH 14.5 % (11.6-17.2); WHITE BLOOD COUNT 7.5 TH/MM3 (4.0-11.0)
[2017-01-10 17:23] LABS: ANION GAP 6 MEQ/L (5-15)
[2017-01-10 17:31] LABS: ACETAMINOPHEN LESS THAN 2.0 MCG/ML (10.0-30.0); ALCOHOL LESS THAN 3 MG/DL (0-5); ALKALINE PHOSPHATASE 81 U/L (45-117); ALT (GPT) 22 U/L (9-52); AST (GOT) 21 U/L (15-39); BICARBONATE 28.2 MEQ/L (21.0-32.0); BLOOD UREA NITROGEN 13 MG/DL (7-18); CHLORIDE 107 MEQ/L (98-107); GLOMERULAR FILTRATION RATE 93 ML/MIN (>89); POTASSIUM 4.2 MEQ/L (3.5-5.1); SODIUM (NA) 141 MEQ/L (136-145); TOTAL BILIRUBIN ADULT 0.7 MG/DL (0.2-1.0)
[2017-01-10 20:11] VITALS: BP 133/71; PULSE 78; RESP 16; TEMP 98.3; O2SAT 99
[2017-01-10 21:39] LABS: BLOOD, URINE NEG (NEG); COMMENT (UR) CULT NOT INDICATED; CULTURE IF INDICATED CULT NOT INDICATED; GLUCOSE,URINE NEG (NEG); KETONE, URINE 10 mg/dL (NEG); MUCUS URINE MANY /lpf (OCC); NITRITE,URINE NEG (NEG); PH, URINE 5.5 (5.0-8.5); SQUAMOUS EPITHELIAL CELL URINE 1 /hpf (0-5); URINE COLOR YELLOW (YELLW/STRAW)
[2017-01-10 22:19] VITALS: BP 123/60; PULSE 61; RESP 17; TEMP 98.1; O2SAT 98
[2017-01-11 02:00] VITALS: BP 107/51; PULSE 70; RESP 18; TEMP 98.3; O2SAT 97
[2017-01-11 06:20] VITALS: BP 112/55; PULSE 69; RESP 18; TEMP 98.6; O2SAT 100
[2017-01-11 11:00] VITALS: BP 129/63; PULSE 63; RESP 20
[2017-01-11 13:24] VITALS: BP 129/63; PULSE 63; RESP 20
--- NOTE | 2017-01-11 13:45 | PD ---
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 The Garza act alleges that the patient ingested 1 ibuprofen, a quarter of a bottle of DayQuil, before trying to drown himself in the bathtub. It also alleges that he reported he no longer wants to live. The patient was monitored in [facility] a presented no suicidality or behavioral dysregulation. Electronic medical record is reviewed. No previous contact with [facility] emergency psychiatry. Current toxicology is positive for cannabinoids The patient is seen. He is alert, oriented. Calm and engaging. His speech is clear, logical and coherent. He is a very soft-spoken young man. He does not present any psychosis, jones or hypomania. He reports that he has been stressed over financial issues, his work responsibility, his school responsibilities as well. He admits that at the time that he took the ibuprofen and the NyQuil he really felt like he could not handle his stressors. He now states that he's had an opportunity to speak with his mother as well as his older sister and he feels hopeful for his future. He reports his mother has offered to get a loan so that he can move back into the college dorm. He denies any current suicidal or homicidal ideation, intent or plan. He is requesting to be discharged. Patient does admit to having thought about harming himself proximally one month ago due to the same stressors. He never reached out to his family for help a cousin he didn't want to be looked upon as a failure. Telephone call to his mother at [phone]. She reports that she has been talking with the patient and will be helping him move back to the dorms. She will also be here on Sunday t help him out. She has no concerns for his safety and advocates for his discharge. She thanks me for the call. [facility] Past Medical History Medical History: Denies Significant Hx Respiratory: Yes (BRONCHITIS) Immunizations Current: Yes Past Surgical History Surgical History: No Previous Surgery Psychiatric History Psychiatric History Hx Psychiatric Treatment: PATIENT DENIES. One previous suicidal gesture. He had thoughts of drowning himself but his landlord knocked on the door and he desisted of this idea. History of Inpatient Treatment: No Guns or firearms in home: No Social History Born and raised in [facility]. Single. 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 Hx Alcohol Use: No Hx Tobacco Use: No Hx Substance Use: Yes (PATIENT DENIES) Substance Use Type: Marijuana Hx of Substance Use Treatment: No Family Psychiatric History Negative Allergies-Medications (Allergen,Severity, Reaction): Coded Allergies: No Known Allergies (Unverified , 07/02/16) Reported Meds & Prescriptions Reported Meds & Active Scripts Active No Active Prescriptions or Reported Medications Review of Systems Except as stated in HPI: all other systems reviewed are Neg Mental Status Examination Appearance: Appropriate (dressed in hospital pajamas and maintaining hygiene) Consciousness: Alert Orientation: x4 Motor Activity: Normal gait Speech: Unremarkable Language: Adequate Fund of Knowledge: Adequate Memory: Unremarkable Mood: Appropriate Affect: Appropriate Thought Process & Associations: Intact Thought Content: Appropriate Hallucination Type: None Delusion Type: None Suicidal Ideation: No Suicidal Plan: No Suicidal Intention: No Homicidal Ideation: No Homicidal Plan: No Homicidal Intention: No Insight: Fair Judgment: Impulsive MDM Medical Decision Making Medical Record Reviewed: Yes Assessment/Plan HPI 21-year-old male , single, 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 The Garza act alleges that the patient ingested 1 ibuprofen, a quarter of a bottle of DayQuil, before trying to drown himself in the bathtub. It also alleges that he reported he no longer wants to live. Patient was monitored in secure environment and presented no suicidality. During his stay here he may contact with his mother who has helped him formulate a plan and he feels comfortable with such plan. He feels that now he is able to reach out to his mother as well as his sister for help. Prior to this he felt he didn't want to disappoint them and that's why he had not informed them of his financial difficulties. He is future oriented and he wants to be able to continue with his schoolwork. He agrees to a safety plan including calling his mother and his sister as well as returning to the hospital if any changes. I have also encouraged him to pursue outpatient counseling at the college. He is cognitively intact and contracts for safety. No evidence of unstable mental illness as defined under the Garza act. Lift the Garza act. Psychiatrically clear for discharge from ED. Orders Orders Complete Blood Count With Diff (01/10/17 14:26) Comprehensive Metabolic Panel (01/10/17 14:26) Urinalysis - C+S If Indicated (01/10/17 14:26) Iv Access Insert/Monitor (01/10/17 14:26) Psych Screen (01/10/17 14:26) Drug Screen, Random Urine (01/10/17 14:26) Alcohol (Ethanol) (01/10/17 14:26) Salicylates (Aspirin) (01/10/17 14:26) Tylenol (Acetaminophen) (01/10/17 14:26) Diet Regular Basic (01/11/17 Breakfast) Diet Regular Basic (01/11/17 Lunch) Results Vital Signs Date Time Temp Pulse Resp B/P (MAP) Pulse Ox O2 Delivery O2 Flow Rate FiO2 01/11/17 13:24 63 20 129/63 (85) Room Air 01/11/17 11:00 63 20 129/63 (85) Room Air 01/11/17 06:20 98.6 69 18 112/55 (74) 100 Room Air 01/11/17 02:00 98.3 70 18 107/51 (69) 97 Room Air 01/10/17 22:19 98.1 61 17 123/60 (81) 98 Room Air 01/10/17 20:11 98.3 78 16 133/71 (91) 99 Room Air Laboratory Tests Test 01/10/17 15:50 01/10/17 21:23 White Blood Count 7.5 Red Blood Count 5.57 Hemoglobin 15.8 Hematocrit 45.7 Mean Corpuscular Volume 81.9 Mean Corpuscular Hemoglobin 28.3 Mean Corpuscular Hemoglobin Concent 34.6 Red Cell Distribution Width 14.5 Platelet Count 219 Mean Platelet Volume 10.1 Neutrophils (%) (Auto) 66.1 Lymphocytes (%) (Auto) 24.9 Monocytes (%) (Auto) 7.7 Eosinophils (%) (Auto) 0.6 Basophils (%) (Auto) 0.7 Neutrophils # (Auto) 5.0 Lymphocytes # (Auto) 1.9 Monocytes # (Auto) 0.6 Eosinophils # (Auto) 0.0 Basophils # (Auto) 0.1 CBC Comment DIFF FINAL Differential Comment Blood Urea Nitrogen 13 Creatinine 1.21 Random Glucose 82 Total Protein 8.0 Albumin 4.2 Calcium Level 8.8 Alkaline Phosphatase 81 Aspartate Amino Transf (AST/SGOT) 21 Alanine Aminotransferase (ALT/SGPT) 22 Total Bilirubin 0.7 Sodium Level 141 Potassium Level 4.2 Chloride Level 107 Carbon Dioxide Level 28.2 Anion Gap 6 Estimat Glomerular Filtration Rate 93 Salicylates Level LESS THAN 1.7 Acetaminophen Level LESS THAN 2.0 Ethyl Alcohol Level LESS THAN 3 Urine Color YELLOW Urine Turbidity CLEAR Urine pH 5.5 Urine Specific [place] 1.033 Urine Protein TRACE Urine Glucose (UA) NEG Urine Ketones 10 Urine Occult Blood NEG Urine Nitrite NEG Urine Bilirubin NEG Urine Urobilinogen LESS THAN 2.0 Urine Leukocyte Esterase NEG Urine RBC 1 Urine WBC 4 Urine Squamous Epithelial Cells 1 Urine Amorphous Sediment RARE Urine Mucus MANY Microscopic Urinalysis Comment CULT NOT INDICATED Urine Opiates Screen NEG Urine Barbiturates Screen NEG Urine Amphetamines Screen NEG Urine Benzodiazepines Screen NEG Urine Cocaine Screen NEG Urine Cannabinoids Screen POS Diagnosis Primary Impression: Adjustment disorder Psychiatrically Cleared: Yes Med/ Other Pt Specific Info: No Meds Exist/No RX given Prescriptions No Active Prescriptions or Reported Meds Disposition: 01 DISCHARGE HOME Condition: Stable Problem Qualifiers Primary Impression: Adjustment disorder Qualified Codes: F43.21 - Adjustment disorder with depressed mood Geneva Camacho [facility] Jan 11, 2017 13:45
--- NOTE | 2017-01-11 14:25 | PD ---
Physical Exam Time Seen by Provider: 14:21 HERON Powers has evaluated the patient, lifted Garza act and cleared the patient for discharge. Data Data Last Documented VS Vital Signs Date Time Temp Pulse Resp B/P (MAP) Pulse Ox O2 Delivery O2 Flow Rate FiO2 01/11/17 13:39 01/11/17 13:24 63 20 Room Air 01/11/17 06:20 98.6 100 Orders Orders Complete Blood Count With Diff (01/10/17 14:26) Comprehensive Metabolic Panel (01/10/17 14:26) Urinalysis - C+S If Indicated (01/10/17 14:26) Iv Access Insert/Monitor (01/10/17 14:26) Psych Screen (01/10/17 14:26) Drug Screen, Random Urine (01/10/17 14:26) Alcohol (Ethanol) (01/10/17 14:26) Salicylates (Aspirin) (01/10/17 14:26) Tylenol (Acetaminophen) (01/10/17 14:26) Diet Regular Basic (01/11/17 Breakfast) Diet Regular Basic (01/11/17 Lunch) Labs Laboratory Tests Test 01/10/17 15:50 01/10/17 21:23 White Blood Count 7.5 TH/MM3 Red Blood Count 5.57 MIL/MM3 Hemoglobin 15.8 GM/DL Hematocrit 45.7 % Mean Corpuscular Volume 81.9 FL Mean Corpuscular Hemoglobin 28.3 PG Mean Corpuscular Hemoglobin Concent 34.6 % Red Cell Distribution Width 14.5 % Platelet Count 219 TH/MM3 Mean Platelet Volume 10.1 FL Neutrophils (%) (Auto) 66.1 % Lymphocytes (%) (Auto) 24.9 % Monocytes (%) (Auto) 7.7 % Eosinophils (%) (Auto) 0.6 % Basophils (%) (Auto) 0.7 % Neutrophils # (Auto) 5.0 TH/MM3 Lymphocytes # (Auto) 1.9 TH/MM3 Monocytes # (Auto) 0.6 TH/MM3 Eosinophils # (Auto) 0.0 TH/MM3 Basophils # (Auto) 0.1 TH/MM3 CBC Comment DIFF FINAL Differential Comment Blood Urea Nitrogen 13 MG/DL Creatinine 1.21 MG/DL Random Glucose 82 MG/DL Total Protein 8.0 GM/DL Albumin 4.2 GM/DL Calcium Level 8.8 MG/DL Alkaline Phosphatase 81 U/L Aspartate Amino Transf (AST/SGOT) 21 U/L Alanine Aminotransferase (ALT/SGPT) 22 U/L Total Bilirubin 0.7 MG/DL Sodium Level 141 MEQ/L Potassium Level 4.2 MEQ/L Chloride Level 107 MEQ/L Carbon Dioxide Level 28.2 MEQ/L Anion Gap 6 MEQ/L Estimat Glomerular Filtration Rate 93 ML/MIN Salicylates Level LESS THAN 1.7 MG/DL Acetaminophen Level LESS THAN 2.0 MCG/ML Ethyl Alcohol Level LESS THAN 3 MG/DL Urine Color YELLOW Urine Turbidity CLEAR Urine pH 5.5 Urine Specific [place] 1.033 Urine Protein TRACE mg/dL Urine Glucose (UA) NEG mg/dL Urine Ketones 10 mg/dL Urine Occult Blood NEG Urine Nitrite NEG Urine Bilirubin NEG Urine Urobilinogen LESS THAN 2.0 MG/DL Urine Leukocyte Esterase NEG Urine RBC 1 /hpf Urine WBC 4 /hpf Urine Squamous Epithelial Cells 1 /hpf Urine Amorphous Sediment RARE Urine Mucus MANY /lpf Microscopic Urinalysis Comment CULT NOT INDICATED Urine Opiates Screen NEG Urine Barbiturates Screen NEG Urine Amphetamines Screen NEG Urine Benzodiazepines Screen NEG Urine Cocaine Screen NEG Urine Cannabinoids Screen POS MDM Supervised Visit with MURALI: No Narrative Course HERON Bean in psychiatric services, has evaluated the patient, lifted Garza act and cleared the patient for discharge. Patient contracts safety. Denies suicidal or homicidal ideations. Patient will be provided community resource packet to [facility] for follow-up. Has friends and family for support. Patient was medically cleared by alternate provider prior to psych screening. Patient has been evaluated by psychiatry and and is now cleared for discharge. Per HERON Bean note she "Telephone call to his mother at [phone]. She reports that she has been talking with the patient and will be helping him move back to the dorms. She will also be here on Sunday t help him out. She has no concerns for his safety and advocates for his discharge. She thanks me for the call." Diagnosis Primary Impression: Adjustment disorder Qualified Codes: F43.21 - Adjustment disorder with depressed mood Referrals: [facility] (Out patient) as needed Medication Management [facility] Primary Care Physician Psychiatrist Bari [facility]ULT[facility] as needed Mental Health and Substance Abuse inpatient facility [facility] Patient Instructions: General Instructions, Mood Disorders (ED), Medical Clearance for Psychiatric Care (ED) Departure Forms: Tests/Procedures Additional Instruction: DX: Adjustment Disorder Please return to ED if symptoms worsen. Contract safety to your self and others Follow-up with psychiatry Follow-up with primary care provider Follow-up with Steven Alves/[facility] Return to the emergency department immediately with worsening of symptoms Med/Other Pt SpecificInfo: No Change to Meds, No Meds Exist/No RX given Scripts No Active Prescriptions or Reported Meds Disposition: 01 DISCHARGE HOME Condition: Stable Caprice Langston Jan 11, 2017 14:25
== END 2017-01-11 14:31 | disposition home or self-care (01) ==
LOC: NEDAMB 12:46 → NEPJ 01-11 14:31
DX: F43.21 Adjustment disorder with depressed mood (principal)
CPT/HCPCS: 80053; 80307; 81001; 85025; 99284